=== PATIENT | female | born 2000 | race Caucasian/White ===

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

== ENCOUNTER 2023-02-09 09:59 | Emergency (ER) | payer OTHER ==
[~2023-02-09] VITALS: Ht 165.1 cm; Wt 52.6 kg
[2023-02-09 11:22] LABS: BASO % 0.3 % (0.0-1.0); EOS % 1.1 % (1.0-4.0); HEMATOCRIT 34.4 % (37.0-47.0); LYMPH # 0.9 10*3/uL (1.3-4.4); LYMPH % 24.8 % (27.0-41.0); MEAN CELL VOLUME 88.4 fl (81.0-99.0); MEAN CORPUSCULAR HGB CONC 32.8 g/dl (33.0-37.0); MEAN PLATELET VOLUME 10.7 fl (9.6-12.3); MONO # 0.3 10*3/uL (0.1-1.0); MONO % 8.8 % (3.0-9.0); NEUT # 2.4 10*3/uL (2.3-7.9); NEUT % 64.7 % (47.0-73.0); PLATELET COUNT AUTOMATED 167 10*3/uL (130-400); RED BLOOD COUNT 3.89 10*6/uL (4.10-5.10); RED CELL DISTRI WIDTH 13.8 % (0-14.5); WHITE BLOOD COUNT 3.8 10*3/uL (4.8-10.8)
[2023-02-09 11:29] LABS: BILIRUBIN Negative (Negative); BLOOD 3+ (Negative); CLARITY Cloudy (Clear); COLOR Dark Yellow (Yellow); GLUCOSE Negative (Negative); KETONE 2+ (Negative); LEUKO ESTERASE Trace (Negative); NITRITE Negative (Negative); PH 5.5 (4.5-8.0); SPECIFIC GRAVITY 1.025 (1.001-1.030)
[2023-02-09 11:48] LABS: BACTERIA 3+; RBC TNTC rbc/hpf (0-2)
[2023-02-09 11:56] LABS: ALKALINE PHOSPHATASE 46 U/L (46-116); BUN 6 mg/dl (9-23); CHLORIDE 106 mmol/L (98-107); POTASSIUM 3.5 mmol/L (3.4-5.1); SGPT/ALT 9 U/L (10-49); TOTAL PROTEIN 6.4 gm/dL (6.0-8.0)
[2023-02-09] MEDS ORDERED: CEPHALEXIN500 M1 PO (14:15)
== END 2023-02-09 14:20 | disposition home or self-care (01) ==
LOC: ED 09:59
PROVIDERS: Emergency Medicine
DX: O23.41 Unspecified infection of urinary tract in pregnancy, first trimester (principal); O46.91 Antepartum hemorrhage, unspecified, first trimester; N39.0 Urinary tract infection, site not specified; F32.A Depression, unspecified; Z3A.01 Less than 8 weeks gestation of pregnancy

== ENCOUNTER 2023-06-25 16:56 | Emergency (ER) | payer OTHER ==
[~2023-06-25] VITALS: Ht 162.5 cm; Wt 44.9 kg
[~2023-06-25 16:56] MED LIST changes: +AMOXICILLIN500 M2 PO; +TRIMOX,POL250 MG/5 M PO
[2023-06-26] MEDS ORDERED: GYNE-LOTRIMIN-745 GM V (22:19)
[2023-06-26] MEDS ORDERED: AMOX-CLAV 875-1 EACH PO (22:19)
[2023-06-30] MEDS ORDERED: PENICILLIN VK500 MG PO (02:02)
== END 2023-06-25 19:57 | disposition left against medical advice (07) ==
LOC: ED 16:56
DX: O26.891 Other specified pregnancy related conditions, first trimester (principal); Z3A.08 8 weeks gestation of pregnancy; L29.2 Pruritus vulvae; R30.9 Painful micturition, unspecified; Z53.21 Procedure and treatment not carried out due to patient leaving prior to being seen by health care provider

== ENCOUNTER 2023-06-26 19:46 | Emergency (ER) | payer OTHER ==
[~2023-06-26] VITALS: Ht 162.5 cm; Wt 44.5 kg
[2023-06-26 21:13] LABS: BASO % 0.5 % (0.0-1.0); EOS # 0.1 10*3/uL (0.0-0.4); EOS % 1.2 % (1.0-4.0); HEMATOCRIT 33.3 % (37.0-47.0); LYMPH # 1.9 10*3/uL (1.3-4.4); LYMPH % 24.9 % (27.0-41.0); MEAN CELL VOLUME 90.2 fl (81.0-99.0); MEAN CORPUSCULAR HGB 29.5 pg (27.0-31.0); MEAN CORPUSCULAR HGB CONC 32.7 g/dl (33.0-37.0); MEAN PLATELET VOLUME 10.3 fl (9.6-12.3); MONO # 0.7 10*3/uL (0.1-1.0); MONO % 8.5 % (3.0-9.0); NEUT % 64.6 % (47.0-73.0); PLATELET COUNT AUTOMATED 289 10*3/uL (130-400); RED BLOOD COUNT 3.69 10*6/uL (4.10-5.10); RED CELL DISTRI WIDTH 12.7 % (0-14.5); WHITE BLOOD COUNT 7.8 10*3/uL (4.8-10.8)
[2023-06-26 21:24] LABS: ACT PARTIAL THROMBO TIME 26.5 SECONDS (20.0-32.1)
[2023-06-26 21:29] LABS: BILIRUBIN Negative (Negative); BLOOD Negative (Negative); CLARITY Cloudy (Clear); COLOR Yellow (Yellow); GLUCOSE 3+ (Negative); KETONE 1+ (Negative); LEUKO ESTERASE 2+ (Negative); NITRITE Negative (Negative); PH 5.5 (4.5-8.0)
[2023-06-26 21:42] LABS: ALKALINE PHOSPHATASE 56 U/L (46-116); CHLORIDE 104 mmol/L (98-107); LIPASE 28 U/L (12-53); POTASSIUM 3.2 mmol/L (3.4-5.1); TOTAL PROTEIN 6.9 gm/dL (6.0-8.0)
[2023-06-26 21:45] LABS: BUN < 5 mg/dl (9-23); SGPT/ALT < 7 U/L (10-49)
[2023-06-26 21:47] LABS: RBC 0-2 rbc/hpf (0-2); WBC TNTC wbc/hpf (0-5)
[2023-06-26 21:48] LABS: BACTERIA 2+
[2023-06-26] MEDS ORDERED: GYNE-LOTRIMIN-745 GM V (22:19)
[2023-06-26] MEDS ORDERED: AMOX-CLAV 875-1 EACH PO (22:19)
[2023-06-30] MEDS ORDERED: PENICILLIN VK500 MG PO (02:02)
== END 2023-06-26 22:45 | disposition home or self-care (01) ==
LOC: ED 19:46
PROVIDERS: Internal Medicine
DX: O23.42 Unspecified infection of urinary tract in pregnancy, second trimester (principal); O98.812 Other maternal infectious and parasitic diseases complicating pregnancy, second trimester; N39.0 Urinary tract infection, site not specified; F32.A Depression, unspecified; Z3A.18 18 weeks gestation of pregnancy

== ENCOUNTER 2023-08-05 08:04 | Emergency (ER) | payer OTHER ==
[~2023-08-05] VITALS: Ht 162.5 cm; Wt 57.2 kg
[~2023-08-05 08:04] MED LIST changes: +AMOX-CLAV 875-1 EACH PO; +GYNE-LOTRIMIN-745 GM V; +PENICILLIN VK500 MG PO
[2023-08-05 09:14] LABS: BASO % 0.4 % (0.0-1.0); EOS % 0.2 % (1.0-4.0); HEMATOCRIT 33.9 % (37.0-47.0); LYMPH # 0.6 10*3/uL (1.3-4.4); LYMPH % 12.3 % (27.0-41.0); MEAN CELL VOLUME 89.2 fl (81.0-99.0); MEAN CORPUSCULAR HGB CONC 33.6 g/dl (33.0-37.0); MEAN PLATELET VOLUME 10.2 fl (9.6-12.3); MONO # 0.3 10*3/uL (0.1-1.0); MONO % 6.5 % (3.0-9.0); NEUT # 3.7 10*3/uL (2.3-7.9); NEUT % 80.4 % (47.0-73.0); PLATELET COUNT AUTOMATED 192 10*3/uL (130-400); RED CELL DISTRI WIDTH 13.2 % (0-14.5); WHITE BLOOD COUNT 4.6 10*3/uL (4.8-10.8)
[2023-08-05 09:24] LABS: ACT PARTIAL THROMBO TIME 26.8 SECONDS (20.0-32.1); INTERNATIONAL NORM RATIO 0.9 (2.0-3.5)
[2023-08-05 09:49] LABS: ALKALINE PHOSPHATASE 58 U/L (46-116); BUN 8 mg/dl (9-23); CHLORIDE 104 mmol/L (98-107); LIPASE 25 U/L (12-53); POTASSIUM 3.2 mmol/L (3.4-5.1); SGPT/ALT 9 U/L (10-49)
== END 2023-08-05 12:43 | disposition home or self-care (01) ==
LOC: ED 08:04
PROVIDERS: Internal Medicine
DX: O46.91 Antepartum hemorrhage, unspecified, first trimester (principal); F32.A Depression, unspecified; Z3A.12 12 weeks gestation of pregnancy